=== PATIENT | female | born 1970 | race Caucasian/White ===

== ENCOUNTER 2020-01-21 16:35 | Emergency (ER) | payer OTHER, SELFPAY ==
[2020-01-21 16:46] VITALS: BP 157/94; PULSE 79; RESP 16; TEMP 36.8; O2SAT 99
--- NOTE | 2020-01-21 17:08 | ED.SKABFB ---
HPI - Skin/Abscess/Foreign Bdy General Chief complaint: Skin/Abscess/Foreign Body Stated complaint: Skin/Foreign Abcess Time Seen by Provider: 01/21/20 17:08 Source: patient Mode of arrival: ambulatory Limitations: no limitations History of Present Illness HPI narrative: Kacie Andrews is a 49 yo female with a PMH of asthma and HTN, who comes to express care with abscesses in hairline on L and R of forehead. Started on R 2weeks ago, and on L 4 days ago - think it was caused by make up or hair dye from Halloween. Patient has been trying to try to treat with antibiotic cream Related Data Home Medications Medication Instructions Recorded Confirmed meloxicam 15 mg PO DAILY 03/22/19 01/21/20 metoprolol tartrate 50 mg PO Q12H 03/22/19 01/21/20 venlafaxine 150 mg PO DAILY 03/22/19 01/21/20 albuterol sulfate 2 inh INHALATION DIRECTED 01/21/20 01/21/20 Allergies Allergy/AdvReac Type Severity Reaction Status Date / Time No Known Allergies Allergy Verified 01/21/20 16:57 Review of Systems Review of Systems: Narrative: CONSTITUTIONAL: Denies fever, chills, sweats. EYES: Denies visual changes, redness, discharge. ENT: Denies rhinorrhea, congestion, sore throat, otalgia. CARDIOVASCULAR: Denies chest pain, palpitations, edema. RESPIRATORY: Denies dyspnea, wheezing, cough GASTROINTESTINAL: Denies abdominal pain, nausea, vomiting, diarrhea. GENITOURINARY: Denies dysuria, hematuria, abnormal discharge SKIN: Denies rash or itching. Bilateral small cellulitis with swelling on left to right side of forehead hairline NEUROLOGIC: Denies numbness, or focal weakness. PSYCHIATRIC: Denies anxiety or depression. [facility] Past Medical History Medical History Asthma HTN (hypertension) Family History Family History Mother Diabetes mellitus Other Heart disease Hypertension Social History Social History (Updated 01/21/20 @ 17:20 by Mary Jo Tamez CNP) Smoking status: Never smoker Substance use: current Comments At time of signature, I agree with nursing past medical, surgical, social and family history. There is no relevant family history pertinent to the presenting complaint. Just got her hypertension meds renewed and has been without for 2 3 days, consequently her blood pressure somewhat elevated this evening Exam Narrative: Exam Narrative: GENERAL: This is a well-nourished, well-developed patient, in mild distress. HEAD: normocephalic, atraumatic. EYES: External ears normal. Hearing grossly intact. NOSE: External nose normal without nasal discharge, nares without redness, no rhinorrhea. THROAT: Mucous membranes moist, NECK: Neck supple, non-tender CARDIOVASCULAR: Regular rate and rhythm without murmurs, gallops, or rubs. RESPIRATORY: Clear to auscultation. Breath sounds equal bilaterally. No wheezes, rales, or rhonchi. GASTROINTESTINAL: Abdomen soft, SKIN: warm, intact with 2 indurated areas with cellulitis at hairline, 1 3x3 on L, 1 3x2 cm on R NEURO: awake, alert, and oriented to person, place and time. There were no obvious focal neurologic abnormalities. Steady gait EXTREMITIES: Normal range of motion. BACK: Nontender without deformity Course Course Emergency Course: Patient came here with 2 small abscesses on her arm on the left and a white right forehead at the hairline Started on Keflex and Bactrim. The directions to not open them but to use warm soaks on them and keep them covered with a dry dressing Follow-up with PCP Vital Signs Vital signs: Vital Signs Temperature 98.3 F 01/21/20 16:46 Pulse Rate 79 01/21/20 16:46 Respiratory Rate 16 01/21/20 16:46 Blood Pressure 157/94 H 01/21/20 16:46 Pulse Oximetry 99 01/21/20 16:46 Temperature 98.3 F 01/21/20 16:46 Pulse Rate 79 01/21/20 16:46 Respiratory Rate 16 01/21/20 16:46 Blood Pressure 157/94 H 01/21/20 16
== END 2020-01-21 17:18 | disposition home or self-care (01) ==
PROVIDERS: Emergency Provider Nurse Practitioner; PCP Family Medicine
DX: L03.811 Cellulitis of head [any part, except face] (principal); J45.909 Unspecified asthma, uncomplicated; I10 Essential (primary) hypertension
CPT/HCPCS: 99213; G0463

== ENCOUNTER 2020-04-07 18:18 | Emergency (ER) | payer OTHER, SELFPAY ==
[2020-04-07 18:39] VITALS: BP 139/90; PULSE 103; RESP 16; TEMP 36.4; O2SAT 100
--- NOTE | 2020-04-07 18:47 | ED.SKABFB ---
HPI - Skin/Abscess/Foreign Bdy General Chief complaint: Skin/Abscess/Foreign Body Stated complaint: Lump on Forehead Time Seen by Provider: 04/07/20 18:47 Source: patient and RN notes reviewed Mode of arrival: ambulatory Limitations: no limitations History of Present Illness HPI narrative: 49 year old female who presents to express care with complaints of 3 day duration of raised lesion to her left forehead at eyebrow area.Patient reports that she has applied heat and cold to area,stuck a needle in the area with clear drainage emitted, and pulled all eyebrow hairs that where in the area. Patient also has some swelling to her left upper eyelid with no felling of foreign body in eye, no lesions noted on or under lash line. Patient has also 2 small raised red areas in right eyebrow area with no pustular formation. Patient reports that she had previously has similar lesions in January on her temporal area and on which healed with oral antibiotics. Patient denies any use of street drugs when questioned. She denies any fevers, chills or sweats or any other ill symptoms. MD complaint: abscess/boil Onset (ago): day(s) (3) Location: face Severity: moderate Severity scale (1-10): 7 Quality: other (throbbing) Pain Consistency: constant Relieving factors: none Exacerbating factors: palpation Associated symptoms: denies other symptoms Treatments prior to arrival: attempted to drain pus at home and other (ice and heat) Related Data Home Medications Medication Instructions Recorded Confirmed albuterol sulfate 90 mcg INHALATION DAILY 04/07/20 04/07/20 meloxicam 15 mg PO DAILY 04/07/20 04/07/20 metoprolol tartrate 50 mg PO DAILY 04/07/20 04/07/20 venlafaxine 150 mg PO DAILY 04/07/20 04/07/20 Allergies Allergy/AdvReac Type Severity Reaction Status Date / Time No Known Allergies Allergy Verified 04/07/20 18:25 Review of Systems Review of Systems: Narrative: CONSTITUTIONAL: Denies fever, chills, or sweats. EYES: Denies visual changes, redness, or discharge, swelling to left upper eyelid, denies any change in vision, no conjunctiva redness ENT: Denies rhinorrhea, congestion, sore throat, or otalgia. CARDIOVASCULAR: Denies chest pain, palpitations, or edema. RESPIRATORY: Denies cough or dyspnea. GASTROINTESTINAL: Denies abdominal pain, nausea, vomiting, or diarrhea. GENITOURINARY: Denies dysuria or hematuria. SKIN: Denies rash or itching, raised swollen area to left forehead measuring 2.5cm X1.5cm with some redness, no acute warmth to tissue. Patient states that she took a needle to area and clear drainage came out. Patient states that she has been applying heat and cold to area. also 2 smal raised red areas to right eyebrow with no pustular formation MUSCULOSKELETAL: Denies back pain, joint pain, or myalgia. NEUROLOGIC: Denies headache, numbness, or weakness. PSYCHIATRIC: Positive history of anxiety or depression. All systems reviewed & are unremarkable except as noted in HPI and below PMFSH Past Medical History Medical History (Updated 04/08/20 @ 00:01 by Charis Pacheco) Anxiety and depression Asthma Foot fracture, left lulú and screws HTN (hypertension) Rheumatoid arthritis Surgical History Surgical History (Updated 04/07/20 @ 19:12 by Diya Bailey NP) H/O eye surgery right from accident H/O gastric bypass Hx of cholecystectomy Hx of hernia repair Family History Family History Mother Diabetes mellitus Other Heart disease Hypertension Social History Social History (Updated 04/07/20 @ 19:12 by Diya Bailey NP) Smoking status: Never smoker Alcohol intake: current Alcohol use details: social Living arrangements: with family Gender identity (if verbalized by the patient): Female Comments At time of signature, agree with nursing past medical, surgical, social and family history. There is no relevant family history pertinent to the prese
== END 2020-04-07 19:28 | disposition home or self-care (01) ==
PROVIDERS: Emergency Provider Registered Nurse
DX: L02.01 Cutaneous abscess of face (principal); H02.845 Edema of left lower eyelid; J45.909 Unspecified asthma, uncomplicated; I10 Essential (primary) hypertension; M06.9 Rheumatoid arthritis, unspecified; F41.9 Anxiety disorder, unspecified; F32.9 Major depressive disorder, single episode, unspecified; Z98.84 Bariatric surgery status
CPT/HCPCS: 99213; G0463

== ENCOUNTER 2020-05-07 16:02 | Emergency (ER) | payer OTHER, SELFPAY ==
[2020-05-07] VITALS (8 sets, daily range): BP systolic 139–160; BP diastolic 82–98; PULSE 54–83; RESP 12–24; TEMP 36.9; O2SAT 92–100
--- NOTE | ~2020-05-07 | XR_ITS ---
XR chest 1V portable DATE: 05/07/2020 16:26 INDICATION: Shortness of breath for 4 to 5 days. History of asthma. Hypertension. TECHNIQUE: Portable upright AP view on May 07, 2020 at 1625 hours COMPARISON: None FINDINGS: Normal heart size. Mild aortic unfolding. No hilar or mediastinal enlargement. No pulmonary infiltrate or consolidation, pleural effusion or pulmonary vascular congestion or pneumo thorax. IMPRESSION: No active cardiopulmonary disease Reviewed, dictated and finalized at location A. R REPAIRER
--- NOTE | 2020-05-07 16:10 | ECG_ITS ---
Measurements Intervals [place] Rate: 78 P: -38 NE: 173 QRS: -18 QRSD: 88 T: 136 QT: 406 QTc: 465 Interpretive Statements SINUS RHYTHM ATRIAL PREMATURE COMPLEXES NONSPECIFIC T-WAVE ABNORMALIT- HIGH LATERAL LEADS BASELINE ARTIFACT- I, II, III, AVL, AVF, V2-V3 BORDERLINE ECG Electronically Signed On 05-08-2020 10:10:47 EDUCATIONAL AIDE by Chris Marsh D.O.
[2020-05-07 16:25] LABS: Basophils Percent Auto 0.8 % (0.2-1.2); Eosinophils Absolute Auto 0.4 K/mm3 (0-0.3); Eosinophils Percent Auto 6.9 % (0-4.4); Hematocrit 28.1 % (37.0-47.0); Hemoglobin 7.8 g/dL (12.0-15.0); Immature Granulocyte Absolute 0.01 K/mm3 (0.00-0.031); Immature Granulocyte Percent A 0.2 % (0-0.5); Lymphocytes Absolute Auto 1.83 K/mm3 (0.9-3.2); Lymphocytes Percent Auto 35.1 % (18.3-44.2); Mean Corpuscular HGB Conc 27.8 g/dl (32-36); Mean Corpuscular Hemoglobin 17.8 pg (26-34); Mean Platelet Volume 8.8 fl (7.4-10.4); Monocytes Absolute Auto 0.4 K/mm3 (0.1-0.6); Monocytes Percent Auto 7.7 % (2.6-8.5); Neutrophils Absolute Auto 2.6 K/mm3 (1.3-6.7); Neutrophils Percent Auto 49.3 % (45.5-73.1); Platelet Count Result 292 k/mm3 (150-375); Red Blood Count 4.39 M/mm3 (4.2-5.4); White Blood Count 5.2 K/mm3 (4.5-10.0)
[2020-05-07] MEDS: ONDANSETRON INJ 4 MG/2 ML VIAL IV PUSH (16:30)
[2020-05-07 16:37] LABS: Anion Gap 6 mmol/L (8-16); Blood Urea Nitrogen 15 mg/dL (7-17); Calcium 9.1 mg/dL (8.4-10.2); Carbon Dioxide 27 mmol/L (22-30); Chloride 104 mmol/L (98-107); Estimated CRCL calculation 93 ml/min; Estimated Glomerular Filt Rate > 60; Glucose 97 mg/dL (65-105); Potassium 3.9 mmol/L (3.4-5.0); Sodium 137 mmol/L (137-145)
[2020-05-07 16:49] LABS: Hypochromasia 1+ (NORMAL); Ovalocytes 1+ (NORMAL); Platelet Estimate Adequate (Adequate)
[2020-05-07] MEDS: MECLIZINE HCL 25 MG TABLET PO (16:49)
[2020-05-07] MEDS: LORazepam INJ (*CRX) 2 MG/ML VIAL 0.5 MG IV PUSH (16:49)
[2020-05-07 19:35] LABS: Troponin I < 0.012 ng/mL (0.000-0.034)
--- NOTE | 2020-05-07 20:19 | ED.GENADULT ---
HPI - General Adult General Chief complaint: Shortness of Breath/Dyspnea Stated complaint: SOB, High Blood Pressure Time Seen by Provider: 05/07/20 16:12 History of Present Illness HPI narrative: Patient is a 50-year-old female who presents ER with multiple complaints. Main complaint is shortness of breath ongoing for the last couple days. She has run out of her inhaler for asthma. Her primary care doctor would not refill it. She also reports she was out of her antianxiety medication and hypertension medication which was refilled. Patient is very anxious and tearful. She does think she is having a panic attack at this time. No history of coronary disease. No exertional chest pain. She cannot describe what makes her short of breath other than not having her inhaler. Denies runny nose/sore throat/productive cough. Related Data Home Medications Medication Instructions Recorded Confirmed albuterol sulfate 90 mcg INHALATION DAILY 04/07/20 04/07/20 meloxicam 15 mg PO DAILY 04/07/20 04/07/20 metoprolol tartrate 50 mg PO DAILY 04/07/20 04/07/20 venlafaxine 150 mg PO DAILY 04/07/20 04/07/20 Allergies Allergy/AdvReac Type Severity Reaction Status Date / Time No Known Allergies Allergy Verified 04/07/20 18:25 [facility] Past Medical History Medical History (Updated 05/07/20 @ 20:24 by Vel Carney MD) Anxiety and depression Asthma Foot fracture, left lulú and screws HTN (hypertension) Rheumatoid arthritis Surgical History Surgical History (Updated 04/07/20 @ 19:12 by Diya Bailey NP) H/O eye surgery right from accident H/O gastric bypass Hx of cholecystectomy Hx of hernia repair Family History Family History Mother Diabetes mellitus Other Heart disease Hypertension Social History Social History (Updated 04/07/20 @ 19:12 by Diya Bailey NP) Smoking status: Never smoker Alcohol intake: current Gender identity (if verbalized by the patient): Female Exam Narrative: Exam Narrative: GENERAL: Well-appearing, well-nourished, and anxious/crying. HEAD: Normocephalic, atraumatic. EYES: PERRL and EOMI. CHEST: Clear to auscultation. No respiratory distress. HEART: Regular rate and rhythm. Normal peripheral pulses. ABDOMEN: Soft, nontender, nondistended. EXTREMITIES: Normal range of motion. No edema. SKIN: Warm, dry, no rash. NEURO: Alert and oriented x3. Course Reevaluation(s) Reevaluation #1: Patient informed of results. Discussed her anemia. She reports that she is chronically anemic and she is noncompliant with her iron, has been as low as 4, never more than 9. She takes a women's multivitamin but does not think has enough iron in it. She reports that she has history of gastric ulcers that blood in the past however she is not experiencing any darkening of her stools or loose stools. Patient will be started on a PPI as she reports she is run out of her reflux medication. We will also prescribe iron and albuterol. We recommend that she follows up with her primary care physician and she is verbalized understanding of this. Discussed that having low iron could certainly contribute to her shortness of breath and she verbalized understanding. Date: 05/07/20 Time: 20:22 Vital Signs Vital signs: Vital Signs Pulse Rate 83 05/07/20 16:16 Respiratory Rate 24 H 05/07/20 16:16 Temperature 98.4 F 05/07/20 16:21 Pulse Rate 70 05/07/20 19:49 Respiratory Rate 20 05/07/20 19:49 Blood Pressure 139/82 05/07/20 19:49 Pulse Oximetry 100 05/07/20 19:49 Medical Decision Making Vital Signs Vital Signs: Vital Signs Pulse Rate 83 05/07/20 16:16 Respiratory Rate 24 H 05/07/20 16:16 Temperature 98.4 F 05/07/20 16:21 Pulse Rate 70 05/07/20 19:49 Respiratory Rate 20 05/07/20 19:49 Blood Pressure 139/82 05/07/20 19:49 Pulse Oximetry 100 05/07/20 19:49 Lab Data Result diagrams:
== END 2020-05-07 20:44 | disposition home or self-care (01) ==
PROVIDERS: Emergency Provider Emergency Medicine; PCP Family Medicine
DX: F41.9 Anxiety disorder, unspecified (principal); D64.9 Anemia, unspecified; F32.9 Major depressive disorder, single episode, unspecified; J45.909 Unspecified asthma, uncomplicated; I10 Essential (primary) hypertension; M06.9 Rheumatoid arthritis, unspecified; Z98.84 Bariatric surgery status; I49.1 Atrial premature depolarization; R94.31 Abnormal electrocardiogram [ECG] [EKG]
CPT/HCPCS: 36415; 71045; 80048; 84484; 85025; 93005; 96374; 96375; 99284; A9270; J2060; J2405